=== PATIENT | female | born 1955 | race Caucasian/White ===

== ENCOUNTER 2016-10-20 14:50 | Emergency (ER) | payer MEDICAID ==
[2016-10-20 15:01] VITALS: BP 119/62; PULSE 73; RESP 18; TEMP 98.1; O2SAT 99
--- NOTE | 2016-10-20 15:26 | ED PDOC ---
Upper Extremity Pain/Injury Time Seen by Provider: 10/20/16 15:05 Chief Complaint (Nursing): Upper Extremity Problem/Injury Chief Complaint (Provider): Right shoulder pain History Per: Patient History/Exam Limitations: no limitations Onset/Duration Of Symptoms: Days (2) Quality: "Pain" Exacerbating Factor(s): Strenuous Use Of Affected Area Additional Complaint(s): The patient is a 61 yo female who presents to the ED for evaluation of right shoulder pain x 2 days ago. Patient reports the pain is worse with movement of her right arm. She denies any injury or trauma to the area; patient also denies any shortness of breath, chest pain, fever, and chills. Patient took diclofenac 2 days ago and this did provide some relief of pain. PCP: Dr. Min Past Medical History Reviewed: Historical Data, Nursing Documentation, Vital Signs Vital Signs: Last Vital Signs Temp 98.1 F 10/20/16 15:00 Pulse 73 10/20/16 15:00 Resp 18 10/20/16 15:00 BP 119/62 10/20/16 15:00 Pulse Ox 99 10/20/16 15:00 - Medical History PMH: Kidney Stones - Surgical History Surgical History: Tonsillectomy, (x 2) Other surgeries: abdominoplasty x 2, kidney surgery x 2 - Family History Family History: States: No Known Family Hx - Living Arrangements Living Arrangements: With Family - Social History Current smoker - smoking cessation education provided: No Alcohol: None Drugs: Denies - Home Medications Home Medications: Ambulatory Orders Medication Instructions Recorded Ibuprofen [Motrin] 600 mg PO TID PRN #30 tab 09/02/15 traMADol [Ultram] 50 mg PO Q8 PRN #12 tab 09/02/15 Cyclobenzaprine [Cyclobenzaprine 10 mg PO TID PRN #20 tab 10/20/16 HCl] Naproxen [Naprosyn] 500 mg PO BID #20 tab 10/20/16 - Allergies Allergies/Adverse Reactions: Allergies Allergy/AdvReac Type Severity Reaction Status Date / Time No Known Allergies Allergy Unverified 10/20/16 14:58 Review of Systems ROS Statement: Except As Marked, All Systems Reviewed And Found Negative Constitutional: Negative for: Fever, Chills Cardiovascular: Negative for: Chest Pain Respiratory: Negative for: Shortness of Breath Musculoskeletal: Positive for: Shoulder Pain (right) Physical Exam - Reviewed Nursing Documentation Reviewed: Yes Vital Signs Reviewed: Yes - Physical Exam Appears: Positive for: Well, Non-toxic, No Acute Distress Head Exam: Positive for: ATRAUMATIC, NORMAL INSPECTION, NORMOCEPHALIC Skin: Positive for: Normal Color Eye Exam: Positive for: Normal appearance Neck: Positive for: Normal, Supple Cardiovascular/Chest: Positive for: Regular Rate, Rhythm, Chest Non Tender Respiratory: Positive for: Normal Breath Sounds. Negative for: Respiratory Distress Back: Negative for: L CVA Tenderness, R CVA Tenderness Extremity: Positive for: Other (tenderness to posterior aspect of right shoulder , full rom with pain, strong right hand ic design engineer, palpable muscle spasm to right shoulder region) Neurologic/Psych: Positive for: Alert, Oriented, Gait (steady) - ECG O2 Sat by Pulse Oximetry: 99 (RA) Pulse Ox Interpretation: Normal - Other Rad CXR and right shoulder x-ray X-Ray: Interpreted by Me, Viewed By Me X-Ray Interpretation: no acute findings Medical Decision Making Medical Decision Making: Time: 1509 Impression: Right shoulder pain Plan: * Chest X-Ray * XR right shoulder * Toradol 30 mg IM * Tylenol 975 mg PO * Reassess Patient states the pain is improved after meds were given. She was given prescription for Naprosyn and Flexeril. Sling was declined. Patient was referred to orthopedist and advised to follow-up in 2-3 days. Scribe Attestation: Documented by Rebeca Garza acting as a scribe for ROBERT Rae Provider Attestation: All medical record entries made by the Scribe were at my direction and personally dictated by me. I have reviewed the chart and agree that the record accurately reflects my personal performance of the history, physical exam, medical decision making, and the department course for this patient. I have also personally directed, reviewed, and agree with the discharge instructions and disposition. Disposition - Clinical Impression Clinical Impression: Shoulder pain - Patient ED Disposition Is Patient to be Admitted: No Counseled Patient/Family Regarding: Studies Performed, Diagnosis, Need For Followup, Rx Given - Disposition Referrals: Jackie Min MD [Primary Care Provider] - Cecil Rabago III, MD [Staff Provider] - Disposition: Routine/Home Disposition Time: 16:42 Condition: STABLE Additional Instructions: Take prescription as directed as needed for pain. Rest and avoid heavy lifting. Follow up with primary doctor or orthopedist in 2-3 days. Prescriptions: Cyclobenzaprine [Cyclobenzaprine HCl] 10 mg PO TID PRN #20 tab PRN Reason: Muscle Spasm Naproxen [Naprosyn] 500 mg PO BID #20 tab Instructions: Shoulder Sprain (ED), Shoulder Pain (ED) Print Language: CROATIAN
--- NOTE | 2016-10-20 16:14 | RAD ---
PROCEDURE: Radiographs of the Right Shoulder HISTORY: pain COMPARISON: No prior. FINDINGS: BONES: Normal. No fracture. JOINTS: Normal. Glenohumeral and acromioclavicular joints preserved. No osteoarthritis. SOFT TISSUES: Normal. OTHER FINDINGS: None. IMPRESSION: Normal radiographs of the right shoulder.
--- NOTE | 2016-10-20 16:14 | RAD ---
HISTORY: pain to right back COMPARISON: 08/09/2014 TECHNIQUE: Chest PA and lateral FINDINGS: LUNGS: No active pulmonary disease. PLEURA: No significant pleural effusion identified. No pneumothorax apparent. CARDIOVASCULAR: Normal. OSSEOUS STRUCTURES: No significant abnormalities. VISUALIZED UPPER ABDOMEN: Normal. OTHER FINDINGS: None. IMPRESSION: No active disease.
== END 2016-10-20 17:31 | disposition home or self-care (01) ==
LOC: H.ER 14:50
DX: M25.511 Pain in right shoulder (principal)

== ENCOUNTER 2016-11-09 08:00 | Day surgery (SDC) | payer MEDICAID ==
[2016-11-05 11:50] VITALS: BMI 28.3
[2016-11-09] MEDS ORDERED: Lactated Ringer's 1,000 ML IV ONE (09:02)
[2016-11-09] MEDS: cefTRIAXone (Rocephin) 1 gm Inj ONE ×2 (09:56→10:25)
[2016-11-09] MEDS ORDERED: Propofol 10 mg/ml Inj (20 ML) ONE (09:57)
[2016-11-09] MEDS ORDERED: Iohexol 300 10 ML ONE (10:01)
--- NOTE | 2016-11-09 10:15 | CARD ---
APPROVED REPORT EKG Measurement Heart [id number] <Conclusion> Sinus bradycardia Otherwise normal ECG
[2016-11-09] MEDS ORDERED: Midazolam 2 MG/2 ML VIAL ONE (10:25)
[2016-11-09 11:24] VITALS: RESP 18
--- NOTE | 2016-11-09 13:25 | RAD ---
PROCEDURE: Intraoperative Fluoroscopy. HISTORY: CYSTOSCOPY FINDINGS: Fluoroscopic assistance was provided for unilateral, right retrograde
[2016-11-09 13:41] VITALS: O2SAT 100
[2016-11-09 14:48] VITALS: BP 120/87; PULSE 56; TEMP 97.6
--- NOTE | 2016-11-09 17:48 | OP ---
PROCEDURE DATE: 11/09/2016 PREOPERATIVE DIAGNOSIS: Right hydronephrosis with right obstructing renal calculi. POSTOPERATIVE DIAGNOSIS: Right hydronephrosis with right obstructing renal calculi. PROCEDURE: Cystoscopy, right retrograde and insertion of a double-J stent. DESCRIPTION OF PROCEDURE: Under general anesthesia, the patient placed on the operating table in dorsal lithotomy position. Area of the groin was draped and prepped in a sterile manner. Using a #21 cystoscope, I entered into bladder atraumatically, identified the right urethral orifice. At this time, I advanced an open-ended ureteral catheter to the level of the urethral pelvic junction. At this time, I injected contrast for retrograde pyelogram to see the contour and was able to realize that 1 stone was completely blocking at the urethral pelvic junction and the other one was more within the renal pelvis itself, they were both sizeable stones, and under fluoroscopy then at this time I threw that existing urethral catheter. I inserted a sensor wire. I could see the sensor wire wrapping in the area of the renal pelvis. I then removed the urethral catheter leaving the sensor wire in place and over that I inserted a 6-St [place] multi-length double-J stent. Once fluoroscopically in place then the instrumentation was removed. The patient was taken from the operating room in good condition. Nadiya Blas MD
== END 2016-11-09 15:25 | disposition home or self-care (01) ==
LOC: H.OPSURG 08:00
PROVIDERS: ATTEND Urology
DX: N20.0 Calculus of kidney (principal); N13.2 Hydronephrosis with renal and ureteral calculous obstruction

== ENCOUNTER 2017-01-01 09:07 | Day surgery (SDC) | payer MEDICAID ==
[2016-12-25 09:46] VITALS: BMI 29.5
[2017-01-01] MEDS ORDERED: Lactated Ringer's 1,000 ML IV ONE (10:30)
[2017-01-01] MEDS ORDERED: Midazolam 2 MG/2 ML VIAL ONE (13:06)
[2017-01-01] MEDS ORDERED: Succinylcholine 200 mg/10 ml Inj IV ONE (13:06)
[2017-01-01] MEDS ORDERED: Propofol 10 mg/ml Inj (20 ML) ONE (13:06)
[2017-01-01] MEDS ORDERED: Lidocaine 4% (Laryng-O-Jet) Kit MM ONE (13:07)
[2017-01-01] MEDS ORDERED: Dexamethasone 4 mg/1 ml ONE (13:40)
[2017-01-01] MEDS ORDERED: Rocuronium 10 mg/ml (5 ml) ONE (13:45)
[2017-01-01] MEDS ORDERED: HYDROmorphone 0.5 mg/0.5 ml ISec IVP PRN (15:11)
[2017-01-01] MEDS ORDERED: Lactated Ringer's 1,000 ML IV SCH (15:15)
--- NOTE | 2017-01-01 15:20 | PCM.SURG1 ---
Surgeon's Initial Post Op Note - Surgeon's Notes Surgeon: Dr. Ware Interior Specialist: Dr. Duncan PGY3, PGY1 Pre-Operative Diagnosis: Right Incisional Lumbar Hernia Operative Findings: see op report Post-Operative Diagnosis: as above Operation Performed: Right Incisional Lumbar Hernia repair with Mesh Specimen/Specimens Removed: none Estimated Blood Loss: EBL {In ML}: 10 Date of Surgery/Procedure: 01/01/17 Time of Surgery/Procedure: 14:30
[2017-01-01] MEDS ORDERED: Oxycodone/Acetaminophen 5/325 mg Tab PO PRN (15:22)
[2017-01-01] MEDS ORDERED: Lactated Ringer's 500 ML IV ONE (16:50)
[2017-01-01 17:04] VITALS: RESP 18
[2017-01-01 17:59] VITALS: TEMP 97.5; O2SAT 97
[2017-01-01 19:09] VITALS: BP 128/77; PULSE 65
--- NOTE | 2017-01-03 00:27 | OP ---
PROCEDURE DATE: 01/01/2017 SURGEON: Júnior Ware MD FICTION AND NONFICTION AUTHOR: Dr. Garcia and Dr. Sosa. TYPE OF ANESTHESIA: General. ANESTHESIA ADMINISTERED BY: Tiffanie Garcia MD PREOPERATIVE DIAGNOSIS: Right-sided lumbar incisional hernia. POSTOPERATIVE DIAGNOSIS: Right-sided lumbar incisional hernia. PROCEDURE: Incisional hernia repair with mesh. DESCRIPTION OF OPERATION: The patient was anesthetized and positioned in a right side up decubitus position on a beanbag with careful padding. The right upper quadrant and flank were prepped and draped in the usual sterile manner. The patient was noted to have a healed incision just below the right costal margin from a previous kidney surgery and an area of herniation was noted and marked preoperatively near the mid-axillary line within the area of the incision. The skin was incised along the old scar, taken down through the subcutaneous tissue, and in the area of weakness, the hernia sac was identified. The sac was opened and it was noted to extend slightly above the margins of the defect. It contained a portion of hepatic flexure of colon, which was not fixed to the sac, and a few adhesions of omentum, which were taken down to free the omentum completely from the sac. The sac was then freed from the anterior surface of the abdominal wall to create a clear defect. The defect was noted to measure approximately 3 inches in diameter. The upper margin of the defect was noted to be quite close to the costal margin and a transfascial U sutures of 0 Prolene were placed in the lowest interspace above the defect to allow positioning of the mesh. Similar transfascial U stitches of 0-Prolene were placed distal to the lower margin of the defect, again to allow stable fixation of the mesh. The defect was then closed primarily with running sutures of 0-PDS encompassing the peritoneum and probably the deep transverse muscle layer. This was accomplished with no significant tension. A 3 x 5-inch piece of Prolene mesh was then trimmed and positioned over the defect using the previously placed sutures and was tied down with slight tension being taken on the mesh to reduce tension on the primary closure. The edges of the mesh were tacked down with 3-0 Vicryl sutures and the subcutaneous tissue was elevated off the fascia to allow the mesh to lay flat in firm apposition to the fascia. The operative site was examined for hemostasis and the subcutaneous tissue was then approximated over the mesh with interrupted sutures of 3-0 Vicryl. Closure was performed with running subcuticular suture of 4-0 Monocryl and Steri-Strips. A dry sterile dressing was applied. The patient tolerated the procedure well and transferred to recovery room in stable condition. Estimated blood loss for the procedure was 10 mL. Júnior Ware MD
== END 2017-01-01 19:40 | disposition home or self-care (01) ==
LOC: H.OPSURG 09:07
PROVIDERS: ATTEND Specialist
DX: K45.8 Other specified abdominal hernia without obstruction or gangrene (principal)
CPT/HCPCS: 49654; C1781; J0330; J0690; J1100; J1170; J2001; J2250; J2405; J2704; J3010; J7030; J7120

== ENCOUNTER 2017-01-02 09:36 | Observation (INO) | payer MEDICAID ==
[2017-01-02 09:41] VITALS: BMI 28.3
[2017-01-02] MEDS ORDERED: Sodium Chloride 0.9% 1,000 ML IV STA (09:54)
--- NOTE | 2017-01-02 10:15 | ED PDOC ---
Upper Extremity Pain/Injury Time Seen by Provider: 01/02/17 09:39 Chief Complaint (Nursing): Upper Extremity Problem/Injury Chief Complaint (Provider): Upper Extremity Problem/Injury History Per: Patient History/Exam Limitations: no limitations Onset/Duration Of Symptoms: Days (x2) Current Symptoms Are (Timing): Still Present Additional Complaint(s): Jackie Cobb is a 61 year old female who presents to the emergency department with a complaint of right-sided shoulder, neck and arm pain exasperated by movements associated with right sided abdominal pain, nausea and vomiting status post lumbar hernia repair performed yesterday by Dr. Ware. Denied fever, chills, constipation and diarrhea. Patient stated she took a Percocet 1 hour prior to arrival and had similar symptoms in past. PMD: Jackie Min MD Past Medical History Reviewed: Historical Data, Nursing Documentation, Vital Signs Vital Signs: Last Vital Signs Temp 98.2 F 01/02/17 09:40 Pulse 61 01/02/17 09:40 Resp 17 01/02/17 09:40 BP 113/58 L 01/02/17 09:40 Pulse Ox 99 01/02/17 09:40 - Medical History PMH: Kidney Stones, Chronic Kidney Disease - Surgical History Surgical History: Tonsillectomy, (x 2) - Family History Family History: States: Unknown Family Hx - Social History Current smoker - smoking cessation education provided: No Ex-Smoker (has not smoked in the last 12 months): No Alcohol: None Drugs: Denies - Immunization History Hx Tetanus Toxoid Vaccination: No Hx Influenza Vaccination: No Hx Pneumococcal Vaccination: No - Home Medications Home Medications: Ambulatory Orders Medication Instructions Recorded oxyCODONE/Acetaminophen [Percocet 5 - 325 mg PO Q4 PRN 01/01/17 5/325 mg Tab] Ondansetron [Zofran Odt] 4 mg PO Q8H PRN #15 odt 01/02/17 - Allergies Allergies/Adverse Reactions: Allergies Allergy/AdvReac Type Severity Reaction Status Date / Time No Known Allergies Allergy Unverified 01/01/17 10:23 Review of Systems ROS Statement: Except As Marked, All Systems Reviewed And Found Negative Constitutional: Negative for: Fever, Chills Gastrointestinal: Positive for: Nausea, Vomiting, Abdominal Pain (right-sided). Negative for: Diarrhea, Constipation Musculoskeletal: Positive for: Neck Pain (right-sided), Shoulder Pain (right- sided), Arm Pain (right-sided) Physical Exam - Reviewed Nursing Documentation Reviewed: Yes Vital Signs Reviewed: Yes - Physical Exam Appears: Positive for: Well, Non-toxic, No Acute Distress Head Exam: Positive for: ATRAUMATIC, NORMAL INSPECTION, NORMOCEPHALIC Neck: Positive for: Pain On Movement Of Neck (right-sided laterally). Negative for: Painless ROM Cardiovascular/Chest: Positive for: Regular Rate, Rhythm. Negative for: Chest Non Tender Respiratory: Positive for: Normal Breath Sounds, Accessory Muscle Use. Negative for: Decreased Breath Sounds, Respiratory Distress Gastrointestinal/Abdominal: Positive for: Tenderness (RUQ), Other (right lateral abdomen incision with clean/dry dressing in place). Negative for: Normal Exam Extremity: Positive for: Normal ROM, Tenderness (right posterior shoulder; right upper extremity). Negative for: Deformity, Swelling Neurologic/Psych: Positive for: Alert, Oriented - Laboratory Results Result Diagrams: 01/02/17 11:00 01/02/17 11:00 - ECG O2 Sat by Pulse Oximetry: 99 (RA) Pulse Ox Interpretation: Normal Medical Decision Making Medical Decision Making: Initial Impression: Musculoskeletal pain; post-op pain Initial Plan: CT ABD/pelvis with IV contrast * CMP * CBC * Morphine 2mg IV * Zofran 4mg IV * NS 1,000ml IV per 1,000mls/hr Time: 1309 --CT ABD/pelvis FINDINGS: LOWER THORAX: Limited bilateral basilar atelectasis identified and stable 5 mm nodule seen at the right lower lobe, subpleural, image 18 series 3. LIVER: Hepatic steatosis is appreciated with the liver appearing upper limits normal size. No gross mass is evident. GALLBLADDER AND BILE DUCTS: Unremarkable. PANCREAS: Unremarkable. No gross lesion or ductal dilatation. SPLEEN: Unremarkable. ADRENALS: Unremarkable. No mass. KIDNEYS AND URETERS: Chronic right hydronephrosis appreciated due to proximal right ureteral calculi with intrarenal calculi identified at the right kidney once again, which are nonobstructive. A tiny lucency seen the left kidneys midpole anteriorly, too small to characterize. Likely free intrarenal gas is seen in the perihepatic space next of the right kidney. VASCULATURE: Unremarkable. No aortic aneurysm. BOWEL: Unremarkable. No obstruction. No gross mural thickening. APPENDIX: Normal appendix. PERITONEUM: The patient's prior right lateral abdominal hernia appears are apparent postop changes identified at the right lateral abdominal wall/ flank including trace fluid and deep subcutaneous gas. Mild intraperitoneal gas is appreciated which is felt to be postoperative related. Clinically correlate further. LYMPH NODES: Unremarkable. No enlarged lymph nodes. BLADDER: Unremarkable. REPRODUCTIVE: Trace fluid is seen the cul-de-sac which is also probably postoperative. BONES: No acute fracture. OTHER FINDINGS: None. IMPRESSION: -Postop changes are suggested at the right flank abdominal wall as well as within the paired the intraperitoneal space status post reduction of right flank /lateral abdominal wall hernia as discussed above. No bowel obstruction is appreciated or other suspicious acute finding at this time other than postoperative changes described above. Limited fluid is seen the cul-de-sac which is probably also postoperative. Should symptoms worsen, follow-up CT with contrast is advised including oral contrast. -Stable 5 mm nodule right lower lobe. Follow-up chest is advised in 12 months demonstrate stability of this finding. -Findings were discussed with Dr. Engle 01/02/2017 1:05 p.m. Scribe Attestation: Documented by Taisha Meza, acting as a scribe for Roseanne Engle MD. Provider Scribe Attestation: All medical record entries made by the Scribe were at my direction and personally dictated by me. I have reviewed the chart and agree that the record accurately reflects my personal performance of the history, physical exam, medical decision making, and the department course for this patient. I have also personally directed, reviewed, and agree with the discharge instructions and disposition. ED OBSERVATION Date of observation admission: 01/02/17 Time of observation admission: 11:00 - Observation admission statement Patient is being placed in observation because:: Abdominal pain - Goals of Observation Goals of observation are:: resolution of symptoms; CT results - Progress Note Progress Note: Time: 1230 --Patient is resting comfortably with stable vital signs. Time: 1400 --CT results available. Patient continues to rest comfortably Disposition - Clinical Impression Clinical Impression: Shoulder pain, Postoperative abdominal pain - Disposition Disposition: Routine/Home Disposition Time: 11:00 Condition: STABLE
[2017-01-02 10:53] VITALS: RESP 16
[2017-01-02 11:31] LABS: BASO % 0.3 % (0.0-2.0); EOS % 0.1 % (0.0-4.0); HEMATOCRIT 36.5 % (34.0-47.0); LYMPH # 1.6 K/uL (1.0-4.3); LYMPH % 13.7 % (20.0-40.0); MEAN CELL VOLUME 86.8 fl (81.0-99.0); MEAN CORPUSCULAR HEMOGLOBIN 28.1 pg (27.0-31.0); MEAN CORPUSCULAR HGB CONC 32.4 g/dL (33.0-37.0); MEAN PLATELET VOLUME 9.6 fl (7.2-11.7); MONO # 0.8 K/uL (0.0-0.8); MONO % 6.7 % (0.0-10.0); NEUT # 9.2 K/uL (1.8-7.0); NEUT % 79.2 % (50.0-75.0); RED CELL DISTRIBUTION WIDTH 13.4 % (11.5-14.5); WHITE BLOOD COUNT 11.6 K/uL (4.8-10.8)
[2017-01-02] MEDS ORDERED: Iohexol 300 100 ML IJ ONE (11:33)
[2017-01-02] MEDS ORDERED: Sodium Chloride 0.9% 50 ML IV ONE (11:33)
[2017-01-02 11:42] LABS: ALB/GLOB RATIO 1.3 (1.0-2.1); ALKALINE PHOSPHATASE 61 U/L (38-126); ALT/SGPT 19 U/L (9-52); AST/SGOT 32 U/L (14-36); BILIRUBIN,TOTAL 1.2 mg/dl (0.2-1.3); BLOOD UREA NITROGEN 14 mg/dl (7-17); CALCIUM 9.8 mg/dL (8.4-10.2); CARBON DIOXIDE 24 mmol/L (22-30); CHLORIDE 104 mmol/L (98-107); GFR AFRICAN-AMERICAN > 60; GLUCOSE,RANDOM 99 mg/dL (65-105); SODIUM 141 mmol/l (132-148); TOTAL PROTEIN 7.1 G/DL (6.3-8.2)
--- NOTE | 2017-01-02 13:11 | CT ---
PROCEDURE: CT Abdomen and Pelvis with contrast HISTORY: RUQ pain, s/p hernia repair COMPARISON: None. TECHNIQUE: Contrast dose: Omnipaque 350, 195 cc Radiation dose: Total exam DLP = 849.10 mGy-cm. This CT exam was performed using one or more of the following dose reduction techniques: Automated exposure control, adjustment of the mA and/or kV according to patient size, and/or use of iterative reconstruction technique. FINDINGS: LOWER THORAX: Limited bilateral basilar atelectasis identified and stable 5 mm nodule seen at the right lower lobe, subpleural, image 18 series 3. LIVER: Hepatic steatosis is appreciated with the liver appearing upper limits normal size. No gross mass is evident. GALLBLADDER AND BILE DUCTS: Unremarkable. PANCREAS: Unremarkable. No gross lesion or ductal dilatation. SPLEEN: Unremarkable. ADRENALS: Unremarkable. No mass. KIDNEYS AND URETERS: Chronic right hydronephrosis appreciated due to proximal right ureteral calculi with intrarenal calculi identified at the right kidney once again, which are nonobstructive. A tiny lucency seen the left kidneys midpole anteriorly, too small to characterize. Likely free intrarenal gas is seen in the perihepatic space next of the right kidney. VASCULATURE: Unremarkable. No aortic aneurysm. BOWEL: Unremarkable. No obstruction. No gross mural thickening. APPENDIX: Normal appendix. PERITONEUM: The patient's prior right lateral abdominal hernia appears are apparent postop changes identified at the right lateral abdominal wall/ flank including trace fluid and deep subcutaneous gas. Mild intraperitoneal gas is appreciated which is felt to be postoperative related. Clinically correlate further. LYMPH NODES: Unremarkable. No enlarged lymph nodes. BLADDER: Unremarkable. REPRODUCTIVE: Trace fluid is seen the cul-de-sac which is also probably postoperative. BONES: No acute fracture. OTHER FINDINGS: None. IMPRESSION: Postop changes are suggested at the right flank abdominal wall as well as within the paired the intraperitoneal space status post reduction of right flank/lateral abdominal wall hernia as discussed above. No bowel obstruction is appreciated or other suspicious acute finding at this time other than postoperative changes described above. Limited fluid is seen the cul-de-sac which is probably also postoperative. Should symptoms worsen, follow-up CT with contrast is advised including oral contrast. Stable 5 mm nodule right lower lobe. Follow-up chest is advised in 12 months demonstrate stability of this finding. Findings were discussed with Dr. Engle 01/02/2017 1:05 p.m..
[2017-01-02 14:18] VITALS: BP 125/71; PULSE 73; TEMP 97.9
[2017-01-03 11:54] VITALS: O2SAT 99
== END 2017-01-02 14:07 | disposition home or self-care (01) ==
LOC: H.ER 09:36 → H.EROBSV 11:00 → H.ER 14:18
PROVIDERS: ADMIT Emergency Medicine; ATTEND Emergency Medicine
DX: G89.18 Other acute postprocedural pain (principal); M25.511 Pain in right shoulder; N18.9 Chronic kidney disease, unspecified; Z87.442 Personal history of urinary calculi; M79.1 Myalgia
CPT/HCPCS: 74177; 80053; 85025; 99283; G0378; J2270; J2405; J7040; Q9967

== ENCOUNTER 2018-03-12 22:48 | Emergency (ER) | payer MEDICAID ==
[2018-03-12 22:49] VITALS: BMI 28.3
[2018-03-12] MEDS ORDERED: Sodium Chloride 0.9% 1,000 ML IV STA (23:48)
[2018-03-13 01:07] LABS: BASO % 0.8 % (0.0-2.0); HEMOGLOBIN 12.6 g/dL (12.0-16.0); LYMPH # 0.6 K/uL (1.0-4.3); MEAN CELL VOLUME 88.6 fl (81.0-99.0); MEAN CORPUSCULAR HEMOGLOBIN 28.6 pg (27.0-31.0); MEAN CORPUSCULAR HGB CONC 32.2 g/dL (33.0-37.0); MEAN PLATELET VOLUME 9.7 fl (7.2-11.7); MONO # 0.6 K/uL (0.0-0.8); NEUT # 3.4 K/uL (1.8-7.0); NEUT % 73.2 % (50.0-75.0); NRBC % 0.1 % (0.0-0.0); RBC 4.41 Mil/uL (3.80-5.20); RED CELL DISTRIBUTION WIDTH 13.6 % (11.5-14.5); WHITE BLOOD COUNT 4.6 K/uL (4.8-10.8)
[2018-03-13 01:16] LABS: INR 1.4; PROTHROMBIN TIME 15.6 Seconds (9.8-13.1)
--- NOTE | 2018-03-13 01:16 | ED PDOC ---
HPI: CCC, URI, Sore Throat Time Seen by Provider: 03/12/18 23:47 Chief Complaint (Nursing): Flu-like Symptoms Chief Complaint (Provider): Cough, sore throat, fever, headache History Per: Patient History/Exam Limitations: no limitations Onset/Duration Of Symptoms: Days (x1) Current Symptoms Are (Timing): Still Present Additional Complaint(s): 63 year old female, with a past medical history of hydronephrosis, presents to the ED complaining of cough, sore throat, fever, and headache since yesterday. Patient states she has also been having body aches and chills. She reports cough is productive of white phlegm. Denies recent travel or taking any medications. PMD: Jackie Cruz Past Medical History Reviewed: Historical Data, Nursing Documentation, Vital Signs Vital Signs: Last Vital Signs Temp 102.6 F H 03/13/18 00:32 Pulse 113 H 03/12/18 23:06 Resp 20 03/12/18 23:06 BP 122/70 03/12/18 23:06 Pulse Ox 94 L 03/12/18 23:06 - Medical History PMH: Kidney Stones, Chronic Kidney Disease Other PMH: Hydronephrosis - Surgical History Surgical History: Tonsillectomy, (x 2) - Family History Family History: States: Unknown Family Hx - Immunization History Hx Tetanus Toxoid Vaccination: No Hx Influenza Vaccination: No Hx Pneumococcal Vaccination: No - Home Medications Home Medications: Ambulatory Orders Medication Instructions Recorded oxyCODONE/Acetaminophen [Percocet 5 - 325 mg PO Q4 PRN 01/01/17 5/325 mg Tab] Ondansetron [Zofran Odt] 4 mg PO Q8H PRN #15 odt 01/02/17 Ibuprofen [Motrin Tab] 600 mg PO Q6 #30 tab 03/13/18 Nitrofurantoin Macrocrystals 100 mg PO BID 5 Days cap 03/13/18 [Macrobid] - Allergies Allergies/Adverse Reactions: Allergies Allergy/AdvReac Type Severity Reaction Status Date / Time No Known Allergies Allergy Unverified 01/01/17 10:23 Review of Systems ROS Statement: Except As Marked, All Systems Reviewed And Found Negative Constitutional: Positive for: Fever, Chills, Other (Body aches) ENT: Positive for: Throat Pain (sore throat) Respiratory: Positive for: Cough (productive of white phlegm) Neurological: Positive for: Headache Physical Exam - Reviewed Nursing Documentation Reviewed: Yes Vital Signs Reviewed: Yes - Physical Exam Appears: Positive for: No Acute Distress (Actively coughing) Head Exam: Positive for: ATRAUMATIC, NORMOCEPHALIC Skin: Positive for: Normal Color, Warm, Dry Eye Exam: Positive for: Normal appearance Neck: Positive for: Normal, Painless ROM Cardiovascular/Chest: Positive for: Regular Rate, Rhythm, Tachycardia Respiratory: Positive for: Normal Breath Sounds. Negative for: Wheezing, Respiratory Distress Gastrointestinal/Abdominal: Positive for: Normal Exam, Soft. Negative for: Tenderness Extremity: Positive for: Normal ROM Neurologic/Psych: Positive for: Alert, Oriented. Negative for: Motor/Sensory Deficits - Laboratory Results Result Diagrams: 03/13/18 00:50 03/13/18 00:50 - ECG O2 Sat by Pulse Oximetry: 94 (RA) Pulse Ox Interpretation: Normal Medical Decision Making Medical Decision Making: Initial Impression: 63 year old female presenting with cough and fever. Patient is currently meeting sepsis criteria. Will initiate workup for pneumonia vs flu vs bronchitis vs URI Initial Plan: --VBG --ECG --CMP --Magnesium stat --Phosphorous stat --CBC --PTT --Prothrombin time --Chest X-ray --Sodium chloride 1000mL IV --Toradol 30mg IV --Tylenol 650mg PO --Blood culture --Urine culture --Influenza A B stat --Urinalysis 03:28 Patient is feeling much improved. Vitals have improved. Patient states blood pressure normally runs low. Mother and daughter understand importance of follow up with primary care. Patient's symptoms most likely viral, and also has UTI. Scribe Attestation: Documented by Price Reilly acting as a scribe for Ranjeet Jones MD. Provider Scribe Attestation: All medical record entries made by the Scribe were at my direction and person ally dictated by me. I have reviewed the chart and agree that the record accurately reflects my personal performance of the history, physical exam, medical decision making, and the department course for this patient. I have also personally directed, reviewed, and agree with the discharge instructions and disposition. Disposition - Clinical Impression Clinical Impression: Upper respiratory infection, UTI (urinary tract infection) - Disposition Referrals: Jackie Min MD [Family Provider] - Nadiya Blas MD [Medical Doctor] - Disposition: Routine/Home Disposition Time: 05:00 Condition: STABLE Prescriptions: Ibuprofen [Motrin Tab] 600 mg PO Q6 #30 tab Nitrofurantoin Macrocrystals [Macrobid] 100 mg PO BID 5 Days cap Instructions: Urinary Tract Infections in Adults Forms: [facility] (Nepali) Print Language: SAMI
[2018-03-13 01:19] LABS: PARTIAL THROMBOPLASTIN TIME 36.2 Seconds (25.6-37.1)
[2018-03-13 01:20] LABS: ALB/GLOB RATIO 1.3 (1.0-2.1); ALBUMIN 4.4 g/dL (3.5-5.0); ALT/SGPT 37 U/L (9-52); AST/SGOT 42 U/L (14-36); BLOOD UREA NITROGEN 16 mg/dl (7-17); CALCIUM 9.3 mg/dL (8.4-10.2); GFR NON-AFRICAN AMERICAN 50
[2018-03-13 01:35] LABS: SQUAMOUS EPITHIAL 2 /hpf (0-5); URINE BACTERIA RARE (<OCC)
[2018-03-13 01:40] LABS: URINE BILIRUBIN NEGATIVE (NEGATIVE); URINE BLOOD MODERATE (NEGATIVE); URINE CLARITY SLIGHTY-CLOUDY (Clear); URINE COLOR YELLOW (YELLOW); URINE GLUCOSE (UA) NEG (NEGATIVE); URINE LEUKOCYTE ESTERASE NEG Leu/uL (Negative); URINE PROTEIN NEGATIVE (NEGATIVE); URINE UROBILINOGEN 0.2-1.0 mg/dL (0.2-1.0)
[2018-03-13] MEDS ORDERED: Sodium Chloride 0.9% 1,000 ML IV STA (03:39)
[2018-03-13 05:05] VITALS: BP 102/67; PULSE 67; RESP 16; TEMP 98.4
[2018-03-13 07:00] VITALS: O2SAT 94
--- NOTE | 2018-03-13 09:50 | RAD ---
Date of service: 03/13/2018 HISTORY: Sepsis Patient COMPARISON: No prior. FINDINGS: LUNGS: No active pulmonary disease. PLEURA: No significant pleural effusion identified, no pneumothorax apparent. CARDIOVASCULAR: No aortic atherosclerotic calcification present. Normal cardiac size. No pulmonary vascular congestion. OSSEOUS STRUCTURES: No significant abnormalities. VISUALIZED UPPER ABDOMEN: Normal. OTHER FINDINGS: None. IMPRESSION: No active disease.
[2018-03-13 16:15] LABS: VENOUS BLOOD GAS PCO2 46 mmHg (40-60); VENOUS BLOOD GAS PO2 17 mm/Hg (30-55)
--- NOTE | 2018-03-14 11:42 | CARD ---
APPROVED REPORT Date of service: 03/13/2018 EKG Measurement Heart [id number] <Conclusion> Normal sinus rhythm Normal ECG
== END 2018-03-13 05:04 | disposition home or self-care (01) ==
LOC: H.ER 22:48
DX: J06.9 Acute upper respiratory infection, unspecified (principal); N39.0 Urinary tract infection, site not specified; Z87.442 Personal history of urinary calculi
CPT/HCPCS: 71045; 80053; 81003; 82803; 83735; 84100; 85025; 85610; 85730; 87040; 87086; 87804; 93005; 96361; 96374; 99283; J1885; J7030